=== PATIENT | female | born 1985 | race Two or more races ===

== ENCOUNTER 2017-09-05 08:38 | Emergency (ER) | payer SELFPAY ==
[~2017-09-05] VITALS: Ht 152.4 cm; Wt 49.9 kg
--- NOTE | 2017-09-05 09:10 | NUR ---
AT BEDSIDE FOR PELVIC EXAM. SWABS OBTAINED AND SENT TO LAB.
[2017-09-05] MEDS ORDERED: ONDANSETRON HCL/PF 4 MG/2 ML VIAL ONE (09:17)
--- NOTE | 2017-09-05 09:25 | NUR ---
US TECH AT BEDSIDE.
[2017-09-05] MEDS ORDERED: KETOROLAC TROMETHAMINE INJ 30 MG/ML VIAL ONE (09:41)
--- NOTE | 2017-09-05 09:48 | NUR ---
URINE OBTAINED AND SENT TO LAB.
--- NOTE | 2017-09-05 09:50 | NUR ---
NEW IV STARTED ON RAC, 20 G. BLOOD DRAWN AND SENT TO LAB.
[2017-09-05] MEDS: ONDANSETRON HCL/PF 4 MG/2 ML VIAL IVP ONE (09:58)
[2017-09-05] MEDS: KETOROLAC TROMETHAMINE INJ 30 MG/ML VIAL IV ONE (09:59)
[2017-09-05] MEDS: IV NS 0.9% 1,000 ML BAG IV ONE (10:00)
--- NOTE | 2017-09-05 10:00 | NUR ---
WAIVER SIGNED BY PATIENT, PATIENT MEDICATED PER MD ORDERS.
[2017-09-05 10:03] LABS: BASOPHILS # (AUTO) 0.1 /CMM (0.0-0.2); EOSINOPHILS # (AUTO) 0.1 /CMM (0.0-0.7); HEMATOCRIT 35 % (33-45); MEAN CORPUSCULAR HGB CONC 34 g/dl (31.0-36.0)
[2017-09-05 10:05] LABS: APPEARANCE,URINE Clear (CLEAR); BILIRUBIN,URINE SMALL (NEGATIVE); BLOOD, URINE Large Ery/uL (NEGATIVE); COLOR,URINE Amber (YELLOW); KETONES,URINE Trace (NEGATIVE); LEUKOCYTE ESTERASE ,URINE Trace (NEGATIVE); NITRITE, URINE Negative (NEGATIVE); PROTEIN,URINE 100 mg/dl (NEGATIVE); UGLUCOSE Negative (NEGATIVE); UROBILINOGEN,URINE 0.2 EU/dL (0.2)
[2017-09-05 10:06] LABS: BASOPHILS % (AUTO) 0.6 % (0.0-2.0); EOSINOPHILS % (AUTO) 0.8 % (0.0-6.0); LYMPHOCYTES # (AUTO) 1.8 /CMM (0.8-4.8); LYMPHOCYTES % (AUTO) 15.2 % (20.0-44.0); MEAN CORPUSCULAR HEMOGLOBIN 28 PG (26.0-33.0); MEAN CORPUSCULAR VOLUME 81 fL (82-100); MONOCYTES # (AUTO) 0.5 /CMM (0.1-1.30); MONOCYTES % (AUTO) 4.1 % (2.0-12.0); NEUTROPHILS # (AUTO) 9.2 /CMM (1.8-8.9); NEUTROPHILS % (AUTO) 79.3 % (43.0-81.0); PLATELET COUNT (AUTO) 194 /CMM (150-450); RDW COEFFICIENT OF VARIATION 13.3 (11.5-15.0); WHITE BLOOD COUNT (AUTO) 11.7 K/uL (4.3-11.0)
[2017-09-05 10:09] LABS: BACTERIA,URINE Few /HPF (None Seen); RBC,URINE TOO NUMEROUS TO COUN /HPF (0-2); SQUAMOUS EPITHELIAL CELL,UR Few /HPF (None Seen)
[2017-09-05 10:18] LABS: CALCIUM, SERUM 8.8 mg/dL (8.5-10.1); CREATININE 0.7 mg/dL (0.6-1.3); POTASSIUM 3.7 mmol/L (3.5-5.1)
[2017-09-05 10:32] LABS: BILIRUBIN,DIRECT 0.1 mg/dL (0.0-0.2); BILIRUBIN,TOTAL 0.2 mg/dL (0.2-1.0); TOTAL PROTEIN, SERUM 7.8 g/dL (6.4-8.2)
[2017-09-05 10:33] LABS: INR 0.94 (0.87-1.13)
[2017-09-05 11:33] VITALS: BP 106/69
--- NOTE | 2017-09-05 11:34 | NUR ---
IV removed. Catheter intact and site benign. Pressure and 4x4 applied to site. No bleeding noted. Patient discharged to home in stable condition. Written and verbal after care instructions given. Patient verbalizes understanding of instruction.
[2017-09-05 12:56] LABS: BAND % (MANUAL) 1 % (0.0-5.0); LYMPHOCYTES % (MANUAL) 17 % (16-48); MONOCYTES % (MANUAL) 5 % (0-11.0); NEUTROPHILS % (MANUAL) 77 (42-76)
== END 2017-09-05 11:33 | disposition home or self-care (01) ==
LOC: ER 08:45
DX: N94.6 Dysmenorrhea, unspecified (principal)
CPT/HCPCS: 36415; 76856-TC; 80048-TC; 80076-TC; 81000-TC; 84702-TC; 85025-TC; 85730-TC; 87210-TC; 87491; 87591; A4606; J1885; J2405; J7030; Z7610